=== PATIENT | female | born 1950 | race Caucasian/White ===

== ENCOUNTER 2018-03-08 17:49 | Emergency (ER) | payer MEDICARE, OTHER ==
[2018-03-08 18:23] LABS: #Basophils 0.1 thou/uL (0.0-0.2); #Eosinphils 0.3 thou/uL (0.0-0.7); #Lymphocytes 2.3 thou/uL (1.20-3.40); #Monocytes 0.7 thou/uL (0.11-0.59); #Neutrophils 6.8 thou/uL (1.40-6.50); %Basophils 1.3 % (0.0-1.0); %Eosinophils 3.3 % (0.0-10.0); %Lymphocytes 22.5 % (21.0-51.0); %Monocytes 7.2 % (0.0-10.0); %Neutrophils 65.8 % (42.0-75.0); Hemoglobin 13.4 g/dL (12.0-16.0); Mean Corpuscular HGB CONC 32.7 g/dL (32.0-36.0); Mean Corpuscular Hemoglobin 28.2 pg (27.0-31.0); Mean Corpuscular Volume 86.1 fL (78.0-98.0); Mean Platelet Volume 7.6 fL (7.4-10.4); Platelet Count 251 thou/uL (130-400); Red Blood Cell (RBC) Count 4.75 mill/uL (4.20-5.40); White Blood Cell (WBC) Count 10.4 thou/uL (4.8-10.8)
[2018-03-08 18:42] LABS: ALT (SGPT) 17 U/L (8-55); AST (SGOT) 22 U/L (5-34); Albumin 4.2 g/dL (3.4-4.8); Alkaline Phosphatase 178 U/L (40-150); Anion Gap 14 mmol/L (10-20); BUN (Urea Nitrogen) 22 mg/dL (9.8-20.1); Bilirubin, Total 0.5 mg/dL (0.2-1.2); Calc. Creatinine Clearance 0 mL/min (70-130); Calcium 9.6 mg/dL (7.8-10.44); Carbon Dioxide 23 mmol/L (23-31); Chloride 102 mmol/L (98-107); Estimated GFR-MDRD 34; Globulin 4.3 g/dL (2.4-3.5); Glucose 437 mg/dL (80-115); Magnesium 1.8 mg/dL (1.6-2.6); Potassium 4.4 mmol/L (3.5-5.1); Protein, Total 8.5 g/dL (6.0-8.3); Sodium 135 mmol/L (136-145)
[2018-03-08 18:50] LABS: Bilirubin Negative (Negative); Blood, Urine Small (Negative); Clarity Cloudy (Clear); Glucose, Urine (Dipstick) >=1000 mg/dL (Negative); Leukocyte Trace (Negative); Nitrite Negative (Negative); Protein, Urine (Dipstick) 100 mg/dL (Neg-Trace); Specific Gravity, Urine 1.015 (1.005-1.030); Urobilinogen 0.2 mg/dL (0.2-1.0)
[2018-03-08 18:52] LABS: Bacteria/HPF 3+ HPF (None Seen); RBC/HPF 0-3 HPF (0-3); Squamous Epithelial 0-3 HPF (0-3); WBC/HPF 21-50 HPF (0-3); Yeast-All Forms Rare HPF (None Seen)
[2018-03-08] MEDS ORDERED: Insulin Regular 300 UNITS/3 ML VIAL ONE (19:15)
== END 2018-03-08 19:37 | disposition home or self-care (01) ==
LOC: SCSER 17:49
DX: E11.65 Type 2 diabetes mellitus with hyperglycemia (principal); E11.22 Type 2 diabetes mellitus with diabetic chronic kidney disease; E11.40 Type 2 diabetes mellitus with diabetic neuropathy, unspecified; I12.9 Hypertensive chronic kidney disease with stage 1 through stage 4 chronic kidney disease, or unspecified chronic kidney disease; N18.9 Chronic kidney disease, unspecified; G47.30 Sleep apnea, unspecified; K21.9 Gastro-esophageal reflux disease without esophagitis; F32.9 Major depressive disorder, single episode, unspecified; M79.7 Fibromyalgia; Z79.4 Long term (current) use of insulin; Z79.899 Other long term (current) drug therapy
CPT/HCPCS: 36416; 80053; 81003; 81015; 82010; 83735; 85025; 93005; 96360; J1815

== ENCOUNTER 2019-09-05 10:14 | Outpatient (CLI) | payer MEDICARE ==
--- NOTE | 2019-09-05 11:32 | MRI ---
MRI cervical spine: 09/05/2019 HISTORY: 69-year-old female with cervical radiculopathy COMPARISON: None FINDINGS: Cervical spinal cord is normal in size and signal. Vertebral body heights are maintained. No major daxa ne marrow signal abnormality. No high-grade disc space narrowing at any level. C1-2: No central stenosis. C2-3: Mild to moderate left facet DJD. Normal right facet joint. No central or neural foraminal steno sis. C3-4: No central stenosis. No right neural foraminal stenosis. Small bilateral uncinate process osteo phytes, left greater than right, and moderate left facet DJD, result in moderate left neural foraminal stenosis. Normal right facet joint. C4-5: Small bilateral uncinate process osteophytes. No significant central spinal canal stenosis. Mod erate bilateral facet DJD, right greater than left. Moderate bilateral neural foraminal stenosis, right worse than left. C5-6: Mild ligamentum flavum thickening encroaches upon posterior aspect of spinal canal. Shallow, br oad-based central and bilateral paracentral disc protrusion indents ventral aspect of spinal cord. Moderate central spinal canal stenosis. Small bilateral uncinate process osteophytes. Normal right fa cet joint. Moderate left facet DJD. Moderate right and mild to moderate left neural foraminal stenosis. C6-7: Ligamentum flavum thickening. Shallow central and bilateral paracentral disc protrusion abuts a nd minimally indents spinal cord. Moderate central spinal canal stenosis. Small right and small to moderate left uncinate process osteophytes. Normal right facet joint versus mild DJD. Mild to moderat e left facet DJD. Mild to moderate bilateral neural foraminal stenosis. C7-T1: Mild, shallow central and bilateral paracentral disc protrusion, smaller than the ones at C5-6 and C6-7. Mild to moderate central spinal canal stenosis. Mild bilateral facet DJD. Mild to moderate bilateral neural foraminal stenosis. IMPRESSION: 1.) Predominantly mild cervical spondylosis, with multilevel mild degenerative disc disease, and face t osteoarthrosis both mild and moderate. 2) neural foraminal stenosis at levels mentioned above..
--- NOTE | 2019-09-05 11:33 | RAD ---
Radiograph left hip 2 views: 09/05/2019 HISTORY: 69-year-old female with left hip pain FINDINGS: No fracture or dislocation. Femoral head contour maintained. No joint space narrowing. No subcapital or significant acetabular osteophytes. IMPRESSION: Negative
== END 2019-09-05 10:15 | disposition home or self-care (01) ==
LOC: BICMRI 10:14
PROVIDERS: ATTEND Nurse Practitioner Family
DX: M54.12 Radiculopathy, cervical region (principal); R10.32 Left lower quadrant pain; M47.22 Other spondylosis with radiculopathy, cervical region; M48.02 Spinal stenosis, cervical region
CPT/HCPCS: 72141

== ENCOUNTER 2019-11-11 10:54 | Outpatient (CLI) | payer MEDICARE ==
--- NOTE | 2019-11-11 11:49 | MRI ---
EXAM: MRI Lumbar Spine WO Con PROVIDED CLINICAL HISTORY: Left hip and buttock pain COMPARISON: None FINDINGS: 5 lumbar vertebral bodies are assumed. Lumbar alignment appears normal. Vertebral body heights are pr eserved. The conus medullaris is normal in signal and terminates at an appropriate level. L1-L2: Mild bilateral facet arthrosis without significant central canal or foraminal narrowing apparent. L2-L3: Mild broad-based disc bulge without significant central canal or foraminal narrowing. Moderate left s ubarticular narrowing. L3-L4: Broad-based disc bulge and bilateral facet arthritis. No significant central canal or foraminal narro wing apparent. Mild bilateral subarticular narrowing. L4-L5: Broad disc bulge and bilateral facet arthritis. Mild-moderate central canal stenosis. Moderate bilate ral subarticular narrowing. Mild right and moderate left foraminal narrowing. L5-S1: No significant central canal or foraminal narrowing apparent. Annular fissure involving the dorsal di sc margin of the midline. IMPRESSION: Lumbar disc and facet degenerative change as described.
== END 2019-11-11 10:55 | disposition home or self-care (01) ==
LOC: TBSIIMAG 10:54
PROVIDERS: ATTEND Nurse Practitioner Family
DX: M43.06 Spondylolysis, lumbar region (principal); M47.816 Spondylosis without myelopathy or radiculopathy, lumbar region; M51.36 Other intervertebral disc degeneration, lumbar region
CPT/HCPCS: 72148